=== PATIENT | male | born 1935 | race Caucasian/White ===

== ENCOUNTER 2022-06-19 06:20 | Day surgery (SDC) | payer BC ==
[~2022-06-19] VITALS: Ht 152.4 cm; Wt 93.9 kg
[2022-06-19] VITALS (11 sets, daily range): BP systolic 98–128; BP diastolic 43–53
[2022-06-19] MEDS ORDERED: DEXTROSE 15 GM of carb/4 tabs (each vial/BOTTLE has 4 tablets) PO PRN ×2 (06:50)
[2022-06-19] MEDS ORDERED: LORazepam 0.5 MG tablet PO PRN (06:50)
[2022-06-19] MEDS ORDERED: dextrose 50%-water 50ml dispensing syringe IV PRN ×2 (06:50)
[2022-06-19] MEDS ORDERED: MESSAGE TO PHARMACY PO ONE (06:50)
[2022-06-19] MEDS ORDERED: nitroGLYCERIN 0.4mg SUBLingual tab SL PRN ×2 (06:50→09:30)
[2022-06-19] MEDS ORDERED: glucagon, human recombinant 1mg kit SUBCUT PRN (06:50)
[2022-06-19] MEDS ORDERED: insulin Lispro (HumaLOG) vial - multi-dose SQ SCH (06:50)
[2022-06-19] MEDS ORDERED: diphenhydrAMINE 25mg capsule PO PRN (06:50)
[2022-06-19] MEDS ORDERED: normal saline 1,000 ML IV SCH (06:50)
[2022-06-19] MEDS ORDERED: METO-384 PO (06:53)
[2022-06-19] MEDS ORDERED: TOPI-253 PO (06:53)
[2022-06-19] MEDS ORDERED: LEVO100T PO (06:53)
[2022-06-19] MEDS ORDERED: LANTUS SQ (06:53)
[2022-06-19] MEDS ORDERED: TERA5CAP4 PO (06:53)
[2022-06-19] MEDS ORDERED: ASPI81TA48 PO (06:53)
[2022-06-19] MEDS ORDERED: LIRA0.6P2 SQ (06:53)
[2022-06-19] MEDS ORDERED: SIMV-42 PO (06:53)
[2022-06-19] MEDS ORDERED: NIFE30TA95 PO (06:53)
[2022-06-19] MEDS ORDERED: INSU100I31 SQ (06:53)
[2022-06-19] MEDS ORDERED: ICOS1CAP PO (06:53)
[2022-06-19] MEDS ORDERED: LIDOcaine 1% 30ml preserv. free vial ONE (07:56)
[2022-06-19] MEDS ORDERED: iohexol 350MG/ML 100ml bottle IV ONE (07:56)
[2022-06-19] MEDS ORDERED: fentaNYL/PF 50MCG/1 ML 2ML syringe ONE (08:04)
[2022-06-19] MEDS ORDERED: midazolam 1 mg/ML 2ml injection ONE (08:05)
[2022-06-19] MEDS ORDERED: iohexol 350 MG/ML 50ML vial IV ONE (08:24)
[2022-06-19] MEDS ORDERED: HYDROcodone/acetaminophen 5mg/325mg tablet PO PRN (09:30)
[2022-06-19] MEDS ORDERED: normal saline 1000ml 1,000 ML IV SCH (09:30)
[2022-06-19] MEDS ORDERED: proCHLORperazine 10 MG/2 ml inj IV PRN (09:30)
[2022-06-19] MEDS ORDERED: OXAZEpam 15mg capsule PO PRN (09:30)
[2022-06-19] MEDS ORDERED: HYDROcodone/acetaminophen 10/325mg tab PO PRN (09:30)
[2022-06-19] MEDS ORDERED: ondansetron/PF 4mg/2ml inj IV PRN (09:30)
[2022-06-19] MEDS ORDERED: insulin glargine (Lantus) pen - multi-dose SQ SCH (21:00)
== END 2022-06-19 15:00 | disposition home or self-care (01) ==
LOC: SSTAY O 06:20
PROVIDERS: ATTEND Internal Medicine Cardiovascular Disease
DX: R94.39 Abnormal result of other cardiovascular function study (principal); I25.119 Atherosclerotic heart disease of native coronary artery with unspecified angina pectoris; R06.09 Other forms of dyspnea; E11.9 Type 2 diabetes mellitus without complications; G47.33 Obstructive sleep apnea (adult) (pediatric); M19.90 Unspecified osteoarthritis, unspecified site; I10 Essential (primary) hypertension; N40.1 Benign prostatic hyperplasia with lower urinary tract symptoms; E78.5 Hyperlipidemia, unspecified; J44.9 Chronic obstructive pulmonary disease, unspecified; Z87.891 Personal history of nicotine dependence; Z86.73 Personal history of transient ischemic attack (TIA), and cerebral infarction without residual deficits; E66.9 Obesity, unspecified; Z68.41 Body mass index [BMI] 40.0-44.9, adult; Z88.8 Allergy status to other drugs, medicaments and biological substances; Z79.899 Other long term (current) drug therapy
CPT/HCPCS: 36415; 82948; 83880; 84484; 93005; 93458; 99152; C1760; J1644; J1815; J2250; J3010; J3490; J7030; Q9967; 99153; A6258